=== PATIENT | male | born 1950 | race Caucasian/White ===

== ENCOUNTER 2017-02-19 00:11 | Emergency (ER) | payer MEDICARE ==
[~2017-02-19] VITALS: Ht 170.2 cm; Wt 85.7 kg
[2017-02-19 00:17] VITALS: BP 156/94; PULSE 73; RESP 18; TEMP 97.9; O2SAT 98
[2017-02-19 00:31] VITALS: BP 156/94; PULSE 73; RESP 20; TEMP 97.9; O2SAT 98
[2017-02-19] MEDS ORDERED: SODIUM CHLOR 0.9% 1000 ML INJ 1,000 ML IV ONE ×2 (00:35→01:45)
--- NOTE | 2017-02-19 00:39 | PD ---
HPI Chief Complaint: Flank/Kidney Pain Time Seen by Provider: 00:34 Travel History International Travel<30 days: No Contact w/Intl Traveler<30days: No Traveled to known affect area: No History of Present Illness HPI 66-year-old male presents to the emergency department for complaint of right flank pain radiating to the right lower quadrant and suprapubic area associated with nausea. Patient states symptoms began mildly and resolved on and again on Sunday and have been constant since this evening. Remote history of kidney stone. Denies history of colitis or diverticulitis. Patient's had nausea without vomiting. No diarrhea or constipation. No melena or hematochezia. Patient does not report any dysuria frequency urgency or hematuria. Patient has history of dyslipidemia. No tobacco use and no hypertension. Previous surgeries bilateral ankle herniorrhaphy. Patient without chest pain or shortness of breath. No recent febrile illness. Pain is rated as severe. PFSH Past Medical History Narrative Medical Dyslipidemia kidney stones bilateral inguinal herniorrhaphy; nursing notes reviewed Social History Tobacco Use: No Allergies-Medications (Allergen,Severity, Reaction): Coded Allergies: Codeine (Verified Allergy, Severe, Tingling, 02/19/17) Tylenol #3 (Verified Allergy, Severe, 02/19/17) Reported Meds & Prescriptions Reported Meds & Active Scripts Active Bactrim DS (Sulfamethoxazole-Trimethoprim) 800-160 Mg Tab 1 Tab PO BID Flomax (Tamsulosin HCl) 0.4 Mg Cap 0.4 Mg PO HS Zofran Odt (Ondansetron Odt) 4 Mg Tab 4 Mg SL Q6HR PRN Percocet (Oxycodone-Acetaminophen) 5-325 mg Tab 1 Tab PO Q6H PRN Review of Systems Except as stated in HPI: all other systems reviewed are Neg General / Constitutional: No: Fever, Chills HENT: No: Congestion Cardiovascular: No: Chest Pain or Discomfort Respiratory: No: Shortness of Breath Gastrointestinal: Positive: Nausea, Abdominal Pain, No: Vomiting, Diarrhea Genitourinary: Positive: Flank Pain, No: Dysuria, Hematuria Musculoskeletal: No: Myalgias Skin: No Rash Neurologic: No: Weakness Psychiatric: No: Anxiety Endocrine: No: Heat Intolerance Hematologic/Lymphatic: No: Easy Bruising Physical Exam Narrative GENERAL: Well-developed well-nourished male in obvious discomfort no respiratory distress SKIN: Warm and dry. HEAD: Normocephalic. EYES: No scleral icterus. No injection or drainage. NECK: Supple, trachea midline. No JVD or lymphadenopathy. CARDIOVASCULAR: Regular rate and rhythm without murmurs, gallops, or rubs. RESPIRATORY: Breath sounds equal bilaterally. No accessory muscle use. GASTROINTESTINAL: Abdomen soft, non-tender, nondistended. MUSCULOSKELETAL: No cyanosis, or edema. BACK: Nontender without obvious deformity. Right-sided CVA tenderness. Data Data Last Documented VS Vital Signs Date Time Temp Pulse Resp B/P Pulse Ox O2 Delivery O2 Flow Rate FiO2 02/19/17 02:24 97.7 66 15 154/84 95 Room Air Orders Complete Blood Count With Diff (02/19/17 00:35) Basic Metabolic Panel (Bmp) (02/19/17 00:35) Urinalysis - C+S If Indicated (02/19/17 00:35) Ct Abd/Pel W/O Iv Contrast (02/19/17 00:35) Ecg Monitoring (02/19/17 00:35) Iv Access Insert/Monitor (02/19/17 00:35) Ketorolac Inj (Toradol Inj) (02/19/17 00:45) Ondansetron Inj (Zofran Inj) (02/19/17 00:45) Sodium Chlor 0.9% 1000 Ml Inj (Ns 1000 M (02/19/17 00:35) Hydromorphone Pf Inj (Dilaudid Pf Inj) (02/19/17 01:15) Urine Culture (02/19/17 00:53) Tamsulosin (Flomax) (02/19/17 01:45) Sodium Chlor 0.9% 1000 Ml Inj (Ns 1000 M (02/19/17 01:45) Ceftriaxone Inj (Rocephin Inj) (02/19/17 01:45) Labs Laboratory Tests Test 02/19/17 00:53 White Blood Count 8.7 TH/MM3 Red Blood Count 4.87 MIL/MM3 Hemoglobin 14.3 GM/DL Hematocrit 43.0 % Mean Corpuscular Volume 88.3 FL Mean Corpuscular Hemoglobin 29.3 PG Mean Corpuscular Hemoglobin 33.2 % Concent Red Cell Distribution Width 13.4 % Platelet Count 234 TH/MM3 Mean Platelet Volume 9.5 FL Neutrophils (%) (Auto) 66.5 % Lymphocytes (%) (Auto) 22.0 % Monocytes (%) (Auto) 7.6 % Eosinophils (%) (Auto) 2.1 % Basophils (%) (Auto) 1.8 % Neutrophils # (Auto) 5.7 TH/MM3 Lymphocytes # (Auto) 1.9 TH/MM3 Monocytes # (Auto) 0.7 TH/MM3 Eosinophils # (Auto) 0.2 TH/MM3 Basophils # (Auto) 0.2 TH/MM3 CBC Comment DIFF FINAL Differential Comment Urine Color YELLOW Urine Turbidity CLEAR Urine pH 5.5 Urine Specific [place] 1.021 Urine Protein NEG mg/dL Urine Glucose (UA) NEG mg/dL Urine Ketones NEG mg/dL Urine Occult Blood TRACE Urine Nitrite NEG Urine Bilirubin NEG Urine Leukocyte Esterase NEG Urine RBC 4-9 /hpf Urine WBC 3-5 /hpf Urine WBC Clumps OCC Urine Mucus FEW /lpf Microscopic Urinalysis Comment CULTURE INDICATED Sodium Level 140 MEQ/L Potassium Level 3.9 MEQ/L Chloride Level 105 MEQ/L Carbon Dioxide Level 22.7 MEQ/L Anion Gap 12 MEQ/L Blood Urea Nitrogen 32 MG/DL Creatinine 1.60 MG/DL Estimat Glomerular Filtration 43 ML/MIN Rate Random Glucose 123 MG/DL Calcium Level 8.3 MG/DL [facility] Medical Decision Making Medical Screen Exam Complete: Yes Emergency Medical Condition: Yes Medical Record Reviewed: Yes Differential Diagnosis Flank pain, renal colic, colitis, I reticulitis, atypical appendicitis, atypical biliary colic Narrative Course Patient placed on monitor tech IV access obtained specimens collected and sent for resulting normal saline bolus administered along with Toradol 30 mg IV and Zofran 4 mg IV Diagnosis Primary Impression: Hydronephrosis of right kidney Additional Impressions: Ureterolithiasis Renal insufficiency Referrals: Urologist call for appointment local donor relations manager urologist Dr Campuzano Patient Instructions: General Instructions, Narcotic given in the ED Additional Instructions: Increase fluid hydration Follow-up with urologist Take medications as prescribed Strain urine Be aware that narcotic medication may impair judgment delay reaction time increased risk for fall or cause constipation Avoid use of nonsteroidal anti-inflammatory medication such as ibuprofen/Advil/ Motrin and/or Aleve/Naprosyn/naproxen and/or aspirin Return to the emergency department for any concerns or change in condition May take acetaminophen/Tylenol every 4 hours as needed for minor pain or for fever 100.4F or greater Complete course of antibiotic as prescribed Med/Other Pt SpecificInfo: Prescription(s) given Scripts Sulfamethoxazole-Trimethoprim (Bactrim DS)800-160 Mg Tab1 Tab PO BID #14 TAB Ref 0 Prov:Lexie Rush MD 02/19/17 Tamsulosin (Flomax)0.4 Mg Cap0.4 Mg PO HS #7 CAP Ref 0 Prov:Lexie Rush MD 02/19/17 Ondansetron Odt (Zofran Odt)4 Mg Tab4 Mg SL Q6HR PRN (Nausea/Vomiting) #10 TAB Ref 0 Prov:Lexie Rush MD 02/19/17 Oxycodone-Acetaminophen (Percocet)5-325 mg Tab1 Tab PO Q6H PRN (PAIN) #12 TAB Ref 0 Prov:Lexie Rush MD 02/19/17 Disposition: 01 DISCHARGE HOME Condition: Stable Lexie Rush MD Feb 19, 2017 00:38
[2017-02-19] MEDS ORDERED: ONDANSETRON HCL 4 MG/2 ML VIAL IVP ONE (00:45)
[2017-02-19] MEDS ORDERED: KETOROLAC TROMETHAMINE 30 MG/ML (IVP) VIAL IVP ONE (00:45)
[2017-02-19 00:59] LABS: AUTOMATED NEUTROPHIL # 5.7 TH/MM3 (1.8-7.7); BASOPHIL # 0.2 TH/MM3 (0-0.2); BASOPHIL % 1.8 % (0.0-2.0); EOSINOPHIL # 0.2 TH/MM3 (0-0.4); EOSINOPHIL % 2.1 % (0.0-4.0); HEMO FLAGS DIFF FINAL; LYMPHOCYTE # 1.9 TH/MM3 (1.0-4.8); MEAN CELL VOLUME 88.3 FL (80.0-100.0); MEAN CORPUSCULAR HEMOGLOBIN 29.3 PG (27.0-34.0); MEAN CORPUSCULAR HGB CONC 33.2 % (32.0-36.0); MONO % 7.6 % (0.0-8.0); NEUT % 66.5 % (16.0-70.0); PLATELET COUNT 234 TH/MM3 (150-450); RED BLOOD COUNT 4.87 MIL/MM3 (4.50-5.90); RED CELL DISTRIBUTION WIDTH 13.4 % (11.6-17.2); WHITE BLOOD COUNT 8.7 TH/MM3 (4.0-11.0)
[2017-02-19 01:01] LABS: BLOOD, URINE TRACE (NEG); GLUCOSE,URINE NEG (NEG); KETONE, URINE NEG (NEG); NITRITE,URINE NEG (NEG); PH, URINE 5.5 (5.0-8.5)
[2017-02-19 01:11] LABS: POTASSIUM 3.9 MEQ/L (3.5-5.1)
[2017-02-19 01:12] LABS: URINE COLOR YELLOW (YELLW/STRAW)
[2017-02-19 01:14] LABS: BICARBONATE 22.7 MEQ/L (21.0-32.0)
[2017-02-19 01:15] LABS: MUCUS URINE FEW /lpf (OCC)
[2017-02-19] MEDS ORDERED: HYDROmorphone HCL PF 1 MG/ML VIAL IV PUSH ONE (01:15)
[2017-02-19 01:16] LABS: COMMENT (UR) CULTURE INDICATED; CULTURE IF INDICATED CULTURE INDICATED
--- NOTE | 2017-02-19 01:33 | RADHPO ---
EXAM DATE/TIME: 02/19/2017 01:07 [place] COMPARISON: No previous studies available for comparison. INDICATIONS : Right flank and back pain. ORAL CONTRAST: No oral contrast ingested. RADIATION DOSE: 17.13 CTDIvol (mGy) MEDICAL HISTORY : None SURGICAL HISTORY : Inguinal hernia repair. ENCOUNTER: Initial ACUITY: 1 day PAIN SCALE: 8/10 LOCATION: Right lower quadrant TECHNIQUE: Volumetric scanning of the abdomen and pelvis was performed. Using automated exposure control and ad justment of the mA and/or kV according to patient size, radiation dose was kept as low as reasonably achievable to obtain optimal diagnostic quality images. FINDINGS: LOWER LUNGS: The visualized lower lungs are clear. LIVER: Homogeneous density without lesion. There is no dilation of the biliary tree. No calcified gallston es. SPLEEN: Normal size without lesion. PANCREAS: Within normal limits. KIDNEYS: There is moderate hydronephrosis of the right ureter done into the right UVJ. There is a 5 x 3 mm mouna cification possible intramural stone at the right UVJ. Solitary additional stone within the right kid luis alberto. No stones in the left kidney ADRENAL GLANDS: Within normal limits. VASCULAR: There is no aortic aneurysm. BOWEL/MESENTERY: The stomach, small bowel, and colon demonstrate no acute abnormality. There is no free intraperitone al air or fluid. ABDOMINAL WALL: Within normal limits. RETROPERITONEUM: There is no lymphadenopathy. BLADDER: No wall thickening or mass. REPRODUCTIVE: Within normal limits. INGUINAL: There is no lymphadenopathy or hernia status post bilateral hernia repair. MUSCULOSKELETAL: Within normal limits for patient age. CONCLUSION: Moderate hydronephrosis and hydroureter on the right side to the level of a 5 x 3 mm possible intramu ral right UVJ stone. Mo Lopez MD on February 19, 2017 at 1:30 Board Certified Radiologist. This report was verified electronically.
[2017-02-19] MEDS ORDERED: cefTRIAXone INJ 1,000 MG in SODIUM CHLORIDE 0.9% INJ 100 ML IV ONE (01:45)
[2017-02-19] MEDS ORDERED: TAMSULOSIN HCL 0.4 MG CAP PO ONE (01:45)
[2017-02-19] MEDS ORDERED: TAMS5CAP PO (02:18)
[2017-02-19] MEDS ORDERED: ZOFR4TAB3 SL (02:18)
[2017-02-19] MEDS ORDERED: PERC5TAB12 PO (02:18)
[2017-02-19] MEDS ORDERED: BACT800T5 PO (02:18)
[2017-02-19 02:24] VITALS: BP 154/84; PULSE 66; RESP 15; TEMP 97.7; O2SAT 95
[2017-02-19 02:38] VITALS: BP 154/80
[2017-02-19] MEDS ORDERED: ONDANSETRON ODT 4 MG TAB PO ONE (03:00)
== END 2017-02-19 02:54 | disposition home or self-care (01) ==
LOC: PHED 00:11
DX: N13.2 Hydronephrosis with renal and ureteral calculous obstruction (principal); N28.9 Disorder of kidney and ureter, unspecified; Z87.442 Personal history of urinary calculi; E78.5 Hyperlipidemia, unspecified
CPT/HCPCS: 74176; 80048; 81001; 85025; 87086; 96361; 96365; 96375; 99284; J0696; J1170; J1885; J2405; J7030